=== PATIENT | female | born 1965 | race Caucasian/White ===

== ENCOUNTER 2016-05-30 07:26 | Inpatient (IN) | payer OTHER ==
[~2016-05-30] VITALS: Ht 165.1 cm; Wt 102.5 kg
[~2016-05-30 07:26] MED LIST: ALBU8.5H2 INHALATION; ALPR1TAB2 PO; ASCO500C6 PO; ASPI325T32 PO; BUSP30TA2 PO; CALC-140 PO; CHOL200047 PO; CYA1000I IM; CYCL10TA9 PO; DOCU-41 PO; FLUT9.9S NS; HYDR2TAB28 PO; IBUP1TAB56 PO; IBUP200C11 PO; LAC10 PO; LAMO150T PO; LEVO75TA4 PO; LORA0.5T PO; LORA10CA PO; MODA200T13 PO; MODA200T41 PO; MULT1CAP33 PO; PRE625 PO; PROP10DR10 OP; RANI150T11 PO; SIME80TA53 PO; TRAM50TA2 PO; ZLP10T PO; [UNRECOGNIZED DRUG - CODE] PO; prednisone PO
[2016-05-30] MEDS ORDERED: HYDROmorphone 1 mg/mL Inj IVPUSH SCH (07:50)
[2016-05-30] MEDS ORDERED: Promethazine Inj 12.5 MG in Dextrose 5%-Pha MIX 50 ML IV SCH (07:55)
[2016-05-30] MEDS ORDERED: diphenhydrAMINE 25 mg Capsule PO SCH (08:00)
[2016-05-30] MEDS ORDERED: Hydrocortisone 50 mg/mL 2 mL Inj IV SCH (08:00)
[2016-05-30 08:49] VITALS: BP 129/79; PULSE 80; O2SAT 98
[2016-05-30] MEDS ORDERED: Albuterol 2.5 mg/3 mL Inhalation Solution NEB PRN (09:15)
[2016-05-30] MEDS ORDERED: Mupirocin 2% 22 Gm Ointment TOPICAL PRN (09:15)
[2016-05-30] MEDS ORDERED: Fluticasone 0.05% 15 Spray/2 Gm 16 Gm Nasal Spray NASAL PRN (09:20)
[2016-05-30] MEDS ORDERED: LORazepam 0.5 mg Tablet PO PRN (09:20)
[2016-05-30] MEDS ORDERED: Artificial Tears 15 mL Ophthalmic Solution AFFECT_EYE PRN (09:25)
--- NOTE | 2016-05-30 09:27 | NUR ---
Social Work Note - Screening: D/A: The Pt is a 51 y/o female that was admitted for hypogammaglobulinemia. Her PCP is MD Missael Mcnamara and her insurance is with [facility]. EMR reviewed, BOBBY met with the Pt and her SO to explain role and discuss discharge planning. BOBBY telephone written on white board. The Pt's DPOA is her SO Cristina Dacosta, paperwork requested. The Pt lives independently with her SO in [place]. Oncology involved, MD Cordova following. See note. The Pt denies any needs at this time, SW to follow if needs arise. P: The Pt is not medically stable for discharge at this time, likely to discharge when medically ready with SO providing POV transportation. The Pt denies any needs at this time, SW to follow if needs arise. PHIL Cruz Slab Stripper Addendum: 05/31/16 at 1651 by MCECA MORAES SS BOBBY has reviewed note. PHIL Bradley
--- NOTE | 2016-05-30 10:21 | NUR ---
Awaiting authorization from insurance Called Dr. Khan's office and notified r/t awaiting authorization from insurance. Nurse works manager and charge nurse aware. patient aware. Denies pain or any discomfort at this time. Stable vital signs.
[2016-05-30 11:36] VITALS: BP 144/84; PULSE 83; RESP 15; O2SAT 98
[2016-05-30] MEDS: diphenhydrAMINE 25 mg Capsule PO SCH ×3 (12:08→20:30)
[2016-05-30] MEDS ORDERED: Promethazine Inj 12.5 MG in 0.9% Sodium Chloride 50 ML IV SCH (12:30)
[2016-05-30] MEDS: Promethazine Inj 12.5 MG in Dextrose 5%-Pha MIX 50 ML IV SCH ×3 (12:30→20:35)
--- NOTE | 2016-05-30 12:59 | NUR ---
Paged admit MD Per Dr Cordova request. [phone] David Martinez returned call and stated red team with be admitting.
[2016-05-30] MEDS: HYDROmorphone 1 mg/mL Inj IVPUSH PRN ×5 (13:00→22:34)
[2016-05-30] MEDS ORDERED: DIPH25CA6 PO (13:46)
[2016-05-30] MEDS: PRIVIGEN IV SCH ×6 (14:06→19:33)
[2016-05-30 15:57] VITALS: BP 128/81; PULSE 83; RESP 16; O2SAT 99
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
--- NOTE | 2016-05-30 16:40 | NUR ---
Telemetry per Tele Afib [address] and has been Afib. Dr. Shekhar brennan. Addendum: 05/30/16 at 1641 by DELMER BARAJAS RN wrong patient
--- NOTE | 2016-05-30 18:45 | NUR ---
Mentation patient alert and oriented X3. Currently on IVIG as ordered after pre meds given. No adverse effects of IVIG noted. c/o headache and general pain 3-5/10. PRN dilaudid every 2 hours for pain as needed. Stable VS. Admit nurse at bed side this shift for med req and admission. Patient asking r/t IV ABO, and IV fluids after IVIG done. Notified DR Corrigan and aware. Dr. Corrigan at bed side and speaking to the patient. IVIG via port which was accessed yesterday per patient report. IV therapy at bed side before IVIG started for dressing on the port. ambulation to bathroom with out SOB or trouble breathing. Denies chest pain or chest discomfort. patient refused shower this shift. report given to next shift.
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
[2016-05-30] MEDS: 0.9% Sodium Chloride 1,000 ML IV SCH (20:35)
[2016-05-30] MEDS: Mupirocin 2% 22 Gm Ointment TOPICAL SCH (20:37)
[2016-05-30] MEDS ORDERED: Polyethylene Glycol (PEG) 17 Gm Powder PO PRN (20:40)
[2016-05-30] MEDS ORDERED: Ondansetron 2 mg/mL 2 mL Inj IVPUSH PRN (20:40)
[2016-05-30] MEDS ORDERED: Alum-Mag Hydrox-Simeth 30 mL Suspension PO PRN (20:40)
[2016-05-30] MEDS: BusPIRone 15 mg Dividose Tablet PO SCH (20:45)
[2016-05-30] MEDS: lamoTRIgine 100 mg Tablet PO SCH (20:45)
[2016-05-30 21:08] VITALS: BP 122/73; PULSE 78; RESP 18; O2SAT 95
[2016-05-30] MEDS: diphenhydrAMINE 25 mg Capsule PO PRN (22:33)
[2016-05-31] MEDS: Promethazine Inj 12.5 MG in Dextrose 5%-Pha MIX 50 ML IV SCH ×2 (00:32→04:37)
[2016-05-31] MEDS: HYDROmorphone 1 mg/mL Inj IVPUSH PRN ×11 (00:33→22:21)
[2016-05-31 00:45] VITALS: BP 147/85; PULSE 70; RESP 18; O2SAT 97
[2016-05-31] MEDS: diphenhydrAMINE 25 mg Capsule PO SCH (02:29)
[2016-05-31 04:52] VITALS: BP 117/76; PULSE 84; RESP 16; O2SAT 96
--- NOTE | 2016-05-31 05:18 | NUR ---
Pain/Nausea Pain has progressively gotten worse as the night has gone on. Pain medication not having as much of impact as before but pt states she still gets enough relief. Pt nausea has been kept at bay. Only during the 429 administration of Phenergan did the pt mention some slight nausea before administration.
[2016-05-31] MEDS: diphenhydrAMINE 25 mg Capsule PO PRN ×2 (06:37→22:20)
[2016-05-31 08:22] VITALS: BP 146/88; PULSE 78; RESP 16; O2SAT 96
[2016-05-31] MEDS ORDERED: HYDROmorphone 2 mg/mL Inj IVPUSH PRN (08:27)
[2016-05-31] MEDS: Mupirocin 2% 22 Gm Ointment TOPICAL SCH ×2 (08:30→20:28)
[2016-05-31] MEDS: Promethazine Inj 12.5 MG in Dextrose 5%-Pha MIX 50 ML IV PRN ×4 (08:33→20:22)
[2016-05-31] MEDS: Dexamethasone Inj 10 MG in 0.9% Sodium Chloride-Pha MIX 50 ML IV SCH (11:50)
[2016-05-31 12:19] LABS: BASOPHILS % (AUTO) 0.3 % (0-3); EOSINOPHILS % (AUTO) 0.5 % (0-5); MONOCYTES % (AUTO) 9.8 % (4-12); Mean Corpuscular Hemoglobin 29.6 pg (27.0-35.0); NEUTROPHILS % (AUTO) 70.3 % (40-74); Platelet Count 461 bil/L (150-400)
[2016-05-31 14:06] VITALS: BP 144/89; PULSE 69; RESP 16; O2SAT 97
--- NOTE | 2016-05-31 15:08 | PCM.PNMED ---
Subjective Date of Service May 31, 2016 Subjective Patient was extremely uncomfortable during the time of my visit on exam. I am hospital bag complaining of severe "meningeal" headache which radiated from temples to top of skull and around to front and back. She endorsed persistent nausea which has not been controlled with current medications. She is sweaty and also endorsing general body aches. She is frustrated she has not received a steroid she thought she was going to be getting. She also states that the pain medication provided so far has been insufficient joint pain. Exam Vital Signs Vital Sign - Last Date Time Temp Pulse Resp B/P Pulse Ox O2 Delivery O2 Flow Rate FiO2 05/31/16 08:22 36.5 78 16 146/88 96 Room Air Intake and Output 05/30/16 05/30/16 05/31/16 Cumulative From/Thru 15:00 23:00 07:00 05/30/16 11:47 - 05/30/16 18:34 Intake Total 1247 ml 1247 ml Balance 1247 ml 1247 ml Intake Oral 900 ml 900 ml IV Total 347 ml 347 ml # Voids 4 4 General: Alert, Oriented X3, Severe Distress, Other (patient is diaphoretic with towel wrapped around had making poor eye contact periodically dry heaving while lying in hospital bed. Speech is loud, and harsh patient is obviously agitated. ) Extremities: No cyanosis/clubbing/edma bilat Skin: Other (Pt is diffusely diaphoretic. ) Neurological: Grossly Neurologically Intact, Other (no overt tremor noted. Full range of motion at least is demonstrated repositioning in bed by patient. ) Additional Information: More extensive exam could not be conducted due to patient noncompliance, request to leave the room and change medications are better pain control. IVs and Medications Medications Reviewed: Medications were reviewed in detail Lab and Diagnostics Result Diagram: 05/31/16 1150 05/31/16 1150 Assessment & Plan 51 YO F with pmhx of hypogammaglobulinemia, admitted for IVIG therapy due to history of very severe reaction requiring intensive medical therapy: 1. Hypogammaglobulemia - Pt scheduled for multiple therapies, now day 2 of hospitalization. - Post treatment steroids to be provided given effects for attenuating response , prescribed by Dr. Cordova. - Pain medication as per Hem/Onc based on previous adelia. Will start continues pulse ox given high dose of opiate. We have increased her dosage to 2-4 mg every 2 hours, at patient and nurses discretion for optimal pain control. - IVFs continued at 50cc/hr - Will continue to provide treatment in accordance with Hem/Onco recommendations 2. Skin erosion/ulceration - Pt notes infection to be chronic, bacterial in nature - Continue topical antibiotic/bactroban 3. Hypothyroidism: - Continue Levothyroxine at out patient dosage. 4. Anxiety: - see above, continue home medications. 5. Transaminitis, with elevated alkaline phosphatase. - Etiology is not clear to me however it may very well be her body's own response to IVIG therapy which clinically is quite severe. - I am not sure of previous baseline as I do not have access patient's outpatient records at this time, but to be reviewed by patient's oncologist Dr. Cordova. - We will continue to trend daily lab studies, consider further intervention should this be upper trending. Patient will require 3-4 more days to complete IV therapy and allow time for medical stabilization given severe response to current treatment. Pain Evaluation: Pain not Controlled GI Prophylaxis: Not indicated VTE Prophylaxis: Other (Pt will be ambulated. ) Resuscitation Status: CPR: Attempt Resuscitation Time spent 25 minutes Sushil Hobbs DO May 31, 2016 15:08
[2016-05-31 17:50] VITALS: BP 146/87; PULSE 81; RESP 16; O2SAT 96
--- NOTE | 2016-05-31 17:53 | NUR ---
Pain/nausea- Patient complaining of 10/10 head pain associated with nausea this am. No emesis. Pain and nausea gradually improved throughout the day with Dilaudid 2 mg IV, Benadryl IV and Phenergan IV given as per ordered and per her request. Patient verbalized that she thought meds would automatically be administered. I explained they were ordered prn and that she would need to let nurse know when she needed them. Both patient and significant other were upset by this. We made a plan that nursing staff would check with her every 30 minutes to every hour and document on white board when meds were last given. She also set her phone alarm to let her know when she could have the Dilaudid around the clock, even when asleep. They both seem satisfied with this plan. Patient on continuous oximetry.
[2016-05-31] MEDS: 0.9% Sodium Chloride 1,000 ML IV SCH (20:21)
[2016-05-31] MEDS: lamoTRIgine 100 mg Tablet PO SCH (20:30)
[2016-05-31] MEDS: BusPIRone 15 mg Dividose Tablet PO SCH (20:31)
--- NOTE | 2016-05-31 21:48 | NUR ---
PULSE OXIMETER Pt refused continuous pulse oximeter as "since it doesn't connect to a monitor up front, it only wakes me up. What's the point of it?" Explained need to monitor oxygen, pt stated "I know that, I don't know why you guys are so worried all the time." Placed 2 L O2 on pt, pt complies with this. Respirations at 12 per minute, will count often as pt receives dilaudid q2h. Hourly rounding.
[2016-06-01] MEDS: HYDROmorphone 1 mg/mL Inj IVPUSH PRN ×13 (00:26→23:32)
[2016-06-01 00:30] VITALS: RESP 14
[2016-06-01] MEDS: Promethazine Inj 12.5 MG in Dextrose 5%-Pha MIX 50 ML IV PRN ×6 (01:00→21:39)
[2016-06-01] MEDS: diphenhydrAMINE 25 mg Capsule PO PRN ×2 (02:24→06:28)
--- NOTE | 2016-06-01 02:46 | NUR ---
ZOFRAN Pt discussed with RN at start of shift about plan of care: dilaudid q2h, nausea medications q2h rotating between phenergan and benadryl. Pt stated she used to take zofran, but previously she had been noted to have QT prolongation. RN told pt zofran is available if necessary, and pt stated "I can't have that at all. That's what they told me so I don't take it anymore." Added zofran to adverse reaction medication list. Will pass on to day shift to not given any zofran. Hourly rounding in place.
[2016-06-01 05:13] VITALS: BP 136/86; PULSE 79; RESP 16; O2SAT 96
--- NOTE | 2016-06-01 07:35 | PROG NOTE ---
[address] [address] PROGRESS NOTE PATIENT: DHARA JONES : 1965 MR#: [id number] ADMIT: 05/30/2016 JOB ID: [id number] DATE: 05/31/2016 SUBJECTIVE: The patient is a 51-year-old woman with hypogammaglobulinemia admitted for IVIG therapy. She has had a significant headache as well as nausea and vomiting associated with her infusion, which is typical for her treatments. However, overnight in general she felt that she was well treated and is in good spirits this morning. No fevers. OBJECTIVE: Vitals: T 36.5, P 84, R 16, BP 117/76. O2 saturation 96% on room air. HEENT: Conjunctivae pink. Mucous membranes slightly dry. No oral lesions. Nodes: No adenopathy in the neck or axilla. Chest distant, but clear. Cardiac exam regular rate and rhythm. Abdomen is soft, mild tenderness. No splenomegaly or masses. Extremities no edema, 2+ distal pulses. LABORATORIES: WBC 3.7 with 70% neutrophils, hemoglobin 11.5, hematocrit 36.1%, platelets 461,000. Sodium 138, potassium 3.6, BUN 10, creatinine 0.51. Glucose 154. AST 754. ALT 398. Alkaline phosphatase 248. IgG 486 (normal 700-1600). ASSESSMENT AND PLAN: 1. Hypogammaglobulinemia: The patient received her IVIG infusion yesterday. Continue to titrate her Dilaudid, Phenergan, lorazepam, and Benadryl to comfort. It usually takes 3-5 days for side effects of her IVIG infusion to priti. 2. Transaminitis: Unclear etiology, but likely associated with her treatment. Consider abdominal ultrasound.
[2016-06-01] MEDS: Mupirocin 2% 22 Gm Ointment TOPICAL SCH ×2 (08:31→20:30)
[2016-06-01 08:32] LABS: BASOPHILS % (AUTO) 0.2 % (0-3); EOSINOPHILS % (AUTO) 0.7 % (0-5); MONOCYTES % (AUTO) 11.6 % (4-12); Mean Corpuscular Hemoglobin 29.9 pg (27.0-35.0); Platelet Count 451 bil/L (150-400)
[2016-06-01] MEDS: Dexamethasone Inj 10 MG in 0.9% Sodium Chloride-Pha MIX 50 ML IV SCH (08:35)
[2016-06-01] MEDS: 0.9% Sodium Chloride 1,000 ML IV SCH (10:00)
[2016-06-01 10:30] VITALS: PULSE 87; O2SAT 94
[2016-06-01 11:45] VITALS: BP 157/89; PULSE 85; RESP 18; O2SAT 96
--- NOTE | 2016-06-01 11:47 | PCM.PNMED ---
Subjective Date of Service Jun 01, 2016 Subjective Patient is feeling significantly improved today relative to earlier stay at the initiation of IVIG therapy. She notes headache is still severe and generalized body pains present as well, nausea has improved significantly allowing her to take in some food and fluids by mouth. Overall she notes still feeling very weak and unwell, as would be typical providers response to IVIG therapy, but certainly not as poorly as yesterday. Does not adjust pain shortness of breath. She is expressing some constipation and would like to take her home dose of lactulose. Additionally requesting ibuprofen for headache. Otherwise no acute complaints. Exam Vital Signs Vital Sign - Last Date Time Temp Pulse Resp B/P Pulse Ox O2 Delivery O2 Flow Rate FiO2 06/01/16 10:30 87 94 Nasal Cannula 2.00 06/01/16 05:13 36.8 16 136/86 Intake and Output 05/31/16 05/31/16 06/01/16 Cumulative From/Thru 15:00 23:00 07:00 05/30/16 11:47 - 06/01/16 06:35 Intake Total 1578 ml 898 ml 1292 ml 5015 ml Balance 1578 ml 898 ml 1292 ml 5015 ml Intake Oral 825 ml 200 ml 600 ml 2525 ml IV Total 753 ml 698 ml 692 ml 2490 ml # Voids 6 1 3 14 # Bowel Movements 0 0 General: Alert, Oriented X3, Cooperative Eyes: PERRLA, Other (some photophobia reported) Mouth: Mucous Membr Moist/Buchtel Chest & Lungs: Clear to auscultation & percussion Cardiovascular: Regular Rate/Rhythm Extremities: No cyanosis/clubbing/edma bilat Skin: Other (cirrhosis mouth around neck and blisters on fingers as previously. ) Neurological: Grossly Neurologically Intact IVs and Medications Medications Reviewed: Medications were reviewed in detail Lab and Diagnostics Result Diagram: 06/01/1682206/01/16822 Assessment & Plan 51 YO F with pmhx of hypogammaglobulinemia, admitted for IVIG therapy due to history of very severe reaction requiring intensive medical therapy: 1. Hypogammaglobulemia - Pt scheduled for multiple therapies, now day 3 of hospitalization. - Post treatment steroids to be provided given effects for attenuating response , prescribed by Dr. Cordova. - Pain medication as per Hem/Onc based on previous adelia. Will start continues pulse ox given high dose of opiate. We had increased her dosage to 2-4 mg every 2 hours, at patient and nurses discretion for optimal pain control. - IVFs continued at 50cc/hr - Will continue to provide treatment in accordance with Hem/Onco recommendations - Ibuprofen added for pain 2. Skin erosion/ulceration - Pt notes infection to be chronic, bacterial in nature - Continue topical antibiotic/bactroban 3. Hypothyroidism: - Continue Levothyroxine at out patient dosage. 4. Anxiety: - see above, continue home medications. 5. Transaminitis, with elevated alkaline phosphatase. - Etiology is not clear to me however it may very well be her body's own response to IVIG therapy which clinically is quite severe. - I am not sure of previous baseline as I do not have access patient's outpatient records at this time, but to be reviewed by patient's oncologist Dr. Cordova. - We will continue to trend daily lab studies, reassured that LFTs now downward trending. - Consider further evaluation should this be again upper trending. Patient will require 3-4 more days to complete IV therapy and allow time for medical stabilization given severe response to current treatment. Pain Evaluation: Adequate Pain Control GI Prophylaxis: Not indicated VTE Prophylaxis: Other (Pt will be ambulated. ) Resuscitation Status: CPR: Attempt Resuscitation Time spent 30 minutes Sushil Hobbs DO Jun 01, 2016 11:47
[2016-06-01] MEDS: 0.9% Sodium Chloride 250 ML IV SCH (13:39)
[2016-06-01] MEDS ORDERED: Sodium Chloride LOK Flush 10 mL Syringe IVFLUSH PRN ×2 (13:40)
[2016-06-01] MEDS ORDERED: HepLOK Flush 100 unit/mL 5 mL Inj IVFLUSH PRN (13:40)
--- NOTE | 2016-06-01 14:36 | PROG NOTE ---
[address] [address] PROGRESS NOTE PATIENT: DHARA JONES : 1965 MR#: [id number] ADMIT: 05/30/2016 JOB ID: [id number] DATE: 06/01/2016 SUBJECTIVE: The patient is a 51-year-old woman with hypogammaglobulinemia, admitted for IVIG therapy. She is feeling a bit better this morning, but had a "a terrible day." She did not feel that she received adequate amounts of Dilaudid or antiemetics. Still, she is doing better this morning. No fevers. No shortness of breath. OBJECTIVE: Vitals: T 37.2, P 85, R 18, BP 157/89. O2 saturation 96% on 2 L oxygen by nasal cannula. HEENT: Conjunctivae slightly pale. Mucous membranes moist. No oral lesions. Nodes: No adenopathy in the neck or axillae. Chest: Clear. Cardiac exam: Regular rate and rhythm with normal S1, S2. Abdomen: Soft. Minimal tenderness. No splenomegaly or masses. Extremities: No edema, 2+ distal pulses. No calf tenderness. LABORATORIES: WBC 5.8, hemoglobin 10.9, hematocrit 34.2%, platelets 451,000. BUN 7, creatinine 0.53, glucose 106. AST 213, ALT 254, alkaline phosphatase 211. ASSESSMENT AND PLAN: 1. Hypogammaglobulinemia: The patient received her IVIG infusion two days ago. Continue to titrate Dilaudid, Phenergan, lorazepam and Benadryl to comfort. It takes 3-5 days for side effects of IVIG infusion to resolve in this patient. Check daily CBC, differential, platelets and CMP. 2. Transaminitis: Liver function tests remain elevated, but are improving. For now, continue to monitor without further evaluation. She typically has these findings with her treatments. ERNESTO
[2016-06-01] MEDS: Lactulose 20 Gm/30 mL 30 mL Syrup PO PRN (14:43)
[2016-06-01 16:25] VITALS: BP 151/95; PULSE 66; RESP 16; O2SAT 97
--- NOTE | 2016-06-01 17:11 | NUR ---
Pain/nausea Pain has decreased from 8/10 at the beginning to the shift to 6/10. Pt has been given 2m of Dilaudid every 2 hours consistently. Has also been receiving scheduled Ultram and was given a dose of ibuprofen. Nausea controlled with Phenergan IV every 4 hours.
[2016-06-01 19:40] VITALS: BP_SYST 151; BP_DIAS 0; BP_DIAS 80; PULSE 67; RESP 18; RESP 8; O2SAT 97
[2016-06-01] MEDS: BusPIRone 15 mg Dividose Tablet PO SCH (21:40)
[2016-06-01] MEDS: lamoTRIgine 100 mg Tablet PO SCH (21:40)
[2016-06-02] MEDS: HYDROmorphone 1 mg/mL Inj IVPUSH PRN ×11 (01:35→22:33)
[2016-06-02] MEDS: Promethazine Inj 12.5 MG in Dextrose 5%-Pha MIX 50 ML IV PRN ×6 (01:35→22:00)
--- NOTE | 2016-06-02 02:05 | NUR ---
PAIN/NAUSEA Pt stated she is starting to feel better than previous days. Pt is still receiving 2mg dilaudid q2h, pain ranging from 6-8/10. Pt still receiving phenergan q4h, nausea is controlled effectively with this. Pt has not requested benadryl this shift. Hourly rounding in place with frequent respirations check.
[2016-06-02] MEDS: 0.9% Sodium Chloride 1,000 ML IV SCH (03:29)
[2016-06-02 05:39] VITALS: BP 124/79; PULSE 78; RESP 14; O2SAT 98
[2016-06-02 07:12] LABS: BASOPHILS % (AUTO) 0.3 % (0-3); EOSINOPHILS % (AUTO) 1.7 % (0-5); MONOCYTES % (AUTO) 9.9 % (4-12); Mean Corpuscular Hemoglobin 30.2 pg (27.0-35.0); Mean Corpuscular Volume 95.2 fL (81-100); NEUTROPHILS % (AUTO) 46.8 % (40-74); Platelet Count 437 bil/L (150-400)
[2016-06-02] MEDS: Dexamethasone Inj 10 MG in 0.9% Sodium Chloride-Pha MIX 50 ML IV SCH (08:12)
[2016-06-02] MEDS: Mupirocin 2% 22 Gm Ointment TOPICAL SCH ×2 (08:12→20:30)
[2016-06-02] MEDS: Lactulose 20 Gm/30 mL 30 mL Syrup PO PRN (08:15)
[2016-06-02] MEDS: diphenhydrAMINE 25 mg Capsule PO PRN ×3 (08:15→20:50)
--- NOTE | 2016-06-02 08:59 | PROG NOTE ---
[address] [address] PROGRESS NOTE PATIENT: DHARA JONES : 1965 MR#: [id number] ADMIT: 05/30/2016 JOB ID: [id number] DATE: 06/02/2016 SUBJECTIVE: The patient is a 51-year-old woman with hypogammaglobulinemia. Admitted May 29, 2016, for IVIG therapy. She has had a bit of relapse with her headaches early this morning, and will not be able to be discharged today. However, overall symptoms associated with her IVIG infusion, which include headache, and severe nausea and vomiting, are improving. No shortness of breath. OBJECTIVE: Vitals: T 36.4, P 78, R 14, BP 124/79. HEENT: Conjunctivae slightly pale. Mucous membranes dry. No oral lesions. Nodes: No adenopathy in the neck or axillae. Chest: Distant, but clear. Cardiac exam: Regular rate and rhythm with normal S1, S2. Abdomen: Soft. Minimal tenderness. No splenomegaly or masses. Extremities: No edema, 2+ distal pulses. No calf tenderness. LABORATORIES: WBC 6.5, hemoglobin 10.7, hematocrit 33.7%, platelets 437,000. Sodium 140, potassium 3.7, BUN 6, creatinine 0.52, glucose 100. AST 98, ALT 169, alkaline phosphatase 175. ASSESSMENT AND PLAN: 1. Hypogammaglobulinemia: The patient received her IVIG infusion three days ago. Continue to administer Dilaudid, Phenergan, lorazepam and Benadryl as needed for symptom relief. Anticipate that she will improve over time and likely be able to be discharged home tomorrow. [facility] with CBC, differential, platelets and CMP. If discharged, she will need a prescription for oral Dilaudid over the weekend until I can see her next Sunday. 2. Transaminitis: Liver function tests are elevated, but improving. Continue to monitor without further investigation. This is a common phenomenon with her IVIG treatments.
[2016-06-02 09:41] VITALS: BP 122/78; PULSE 76; RESP 16; O2SAT 100
--- NOTE | 2016-06-02 10:55 | PCM.PNMED ---
Subjective Date of Service Jun 02, 2016 Exam Vital Signs Vital Sign - Last Date Time Temp Pulse Resp B/P Pulse Ox O2 Delivery O2 Flow Rate FiO2 06/02/16 05:39 36.4 78 14 124/79 98 Room Air 06/01/16 16:25 2.00 Intake and Output 06/01/16 06/01/16 06/02/16 Cumulative From/Thru 14:59 22:59 06:59 05/30/16 11:47 - 06/02/16 05:14 Intake Total 1838 ml 1842 ml 8695 ml Balance 1838 ml 1842 ml 8695 ml Intake Oral 1320 ml 1680 ml 5525 ml IV Total 518 ml 162 ml 3170 ml # Voids 5 3 22 # Bowel Movements 0 Lab and Diagnostics O/N doing well then woke up with worsening GAYTAN and nausea, better w/ IV dilaudid/ phenergan, ongoing constipation on 2L O2 due to high dilaudid need NAD A and o x3 CTAB RRR soft + BS HENRIQUEZ vesicles hands healing new excoriation right periauricle/left eye brow. left perioral crease present Result Diagram: 06/01/1682206/01/16822 Assessment & Plan 51 YO F with pmhx of hypogammaglobulinemia, admitted for recurrent IVIG therapy due to history of very severe reaction requiring intensive medical therapy, ongoing nausea/pain, anticipate discharge tomorrow: 1. Hypogammaglobulemia ivIG- Post treatment steroids to be provided given effects for attenuating response, prescribed by Dr. oCrdova. - Pain medication as per Hem/Onc based on previous adelia. Will start continues pulse ox given high dose of opiate. We had increased her dosage to 2-4 mg every 2 hours, at patient and nurses discretion for optimal pain control. - IVFs continued at 50cc/hr - Ibuprofen added for pain 2. Skin erosion/ulceration - Pt notes infection to be chronic, bacterial in nature - Continue topical antibiotic/bactroban 3. Hypothyroidism: - Continue Levothyroxine at out patient dosage. 4. Anxiety: - see above, continue home medications. 5. Transaminitis, with elevated alkaline phosphatase, resolving. - Etiology is not clear to me however it may very well be her body's own response to IVIG therapy which clinically is quite severe. - I am not sure of previous baseline as I do not have access patient's outpatient records at this time, but to be reviewed by patient's oncologist Dr. Cordova. - We will continue to trend daily lab studies, reassured that LFTs now downward trending. - Consider further evaluation should this be again upper trending. constipation add docusate w/ lactulose dispo anticiipate home tomorrow GI Prophylaxis: Not indicated VTE Prophylaxis: Other (Pt will be ambulated. ) Resuscitation Status: CPR: Attempt Resuscitation Charlie Lemon MD Jun 02, 2016 06:44
[2016-06-02] MEDS: 0.9% Sodium Chloride 250 ML IV SCH (13:39)
--- NOTE | 2016-06-02 13:50 | NUR ---
Social Work note - Continued d/c planning [employer] completed EMR review: 51 YO F admitted for treatment of hypogammaglobulinemia, admitted for recurrent IVIG therapy due to history of very severe reaction requiring intensive medical therapy, ongoing nausea/pain. Pt continues to require IV pain management - anticipate discharge tomorrow. Plan: Pt will d/c home with family in [place] - no needs identified. CHRISTY Yoder
--- NOTE | 2016-06-02 14:54 | NUR ---
Pain/nausea Head pain 5-9/10. Managed with Dilaudid 2-4mg every 2 hours. Pt is also receiving scheduled Ultram. Nausea controlled with Phenergan and Diphenhydramine. Will continue to monitor.
[2016-06-02 16:16] VITALS: BP 145/84; PULSE 76; RESP 14; O2SAT 98
[2016-06-02 20:30] VITALS: BP 155/92; PULSE 71; RESP 16; O2SAT 98
[2016-06-02] MEDS: BusPIRone 15 mg Dividose Tablet PO SCH (20:35)
[2016-06-02] MEDS: lamoTRIgine 100 mg Tablet PO SCH (20:36)
[2016-06-03] MEDS: diphenhydrAMINE 25 mg Capsule PO PRN ×3 (00:33→08:54)
[2016-06-03] MEDS: HYDROmorphone 1 mg/mL Inj IVPUSH PRN ×6 (00:33→11:30)
[2016-06-03 02:00] VITALS: BP 146/90; PULSE 67; RESP 16; O2SAT 97
[2016-06-03] MEDS: Promethazine Inj 12.5 MG in Dextrose 5%-Pha MIX 50 ML IV PRN ×3 (02:09→11:35)
[2016-06-03 06:17] VITALS: BP 125/72; PULSE 78; RESP 16; O2SAT 97
[2016-06-03] MEDS: Dexamethasone Inj 10 MG in 0.9% Sodium Chloride-Pha MIX 50 ML IV SCH (08:55)
--- NOTE | 2016-06-03 08:55 | PCM.DC.MED ---
Discharge Summary Date of Service Jun 03, 2016 Dates of Hospitalization Date of Hospital Admission May 30, 2016 at 07:26 Date of Discharge: Jun 03, 2016 Providers: Admitting Physician: Daniel Cordova MD Primary Care Physician: Missael Mcnamara MD Attending Physician: Daniel Cordova MD Diagnosis at Time of Discharge Diagnosis at Time of Discharge headache/cellulitis/vesicular rash, resolving s/p IVIG recurrent therapy hypogammaglobulinemia Consultations oncology Brief History This is a 51 YO F with pmhx significant for hypogammaglobulinemia with requires periodic IVIG therapy. The is further complicated by patient having severe and violent reaction to treatments which has necessitated hospital admission for aggressive hydration and close observation. She is treated ~every 6 months, generally at [facility], but this occasion will be at [facility]. Pt is anxious about new setting and ensuring the usual care is provided which she has found makes the IVIG therapy tolerable, and even possible. She is feeling 'OK' at time of my exam, having started first infusion a few hours prior, so far noting no significant effects, but states they generally do not start occurring until later. She notes multiple lesions of skin , starting as blisters which pop and ulcerate. This has been more common over last few months. They tend to respond to topical antibiotic therapy. She denies chest pains or shortness of breath currently. No pain at this time. Normal bowel /bladder function prior to admission. Hospital Course 51 YO F with pmhx of hypogammaglobulinemia, admitted for recurrent IVIG therapy due to history of very severe reaction requiring intensive medical therapy, discharged today w/ improvement of nausea/headache/hand vesicles/facial erosions after HD5, 1. Hypogammaglobulemia ivIG- Post treatment steroids to be provided given effects for attenuating response, prescribed by Dr. Cordova. - Pain medication as per Hem/Onc-already family picked up at pharmacy. O2NC during dilaudid administration here. We had increased her dosage to 2-4 mg every 2 hours, at patient and nurses discretion for optimal pain control. - IVFs continued at 50cc/hr dcd after tolerating diet well - Ibuprofen added for pain 2. Skin erosion/ulceration - Pt notes infection to be chronic, bacterial in nature - Continue topical antibiotic/bactroban 3. Hypothyroidism: - Continue Levothyroxine at out patient dosage. 4. Anxiety: - see above, continue home medications. 5. Transaminitis, with elevated alkaline phosphatase, resolving. - Etiology is not clear however it may very well be her body's own response to IVIG therapy which clinically is quite severe. - We will continue to trend daily lab studies, reassured that LFTs now downward trending. - Consider further evaluation should this be again upper trending. constipation, resolved added docusate w/ lactulose Exam Vital Signs (Last) Date Time Temp Pulse Resp B/P Pulse Ox O2 Delivery O2 Flow Rate FiO2 06/03/16 06:17 37.1 78 16 125/72 97 Nasal Cannula 2.00 Exam on RA comfortable NAD A and O x 3 speaking in full sentences RRR CTAB soft nt nd + BS HENRIQUEZ no edema facial erosions resolving hand vesicles resolved Test 06/02/16 06:20 White Blood Count 6.5th/mm3 (3.8-10.1) Red Blood Count 3.54mil/mm3 (3.90-5.20) Hemoglobin 10.7g/dL (12.0-15.6) Hematocrit 33.7% (35.0-46.0) Mean Corpuscular Volume 95.2fL (81-100) Mean Corpuscular Hemoglobin 30.2pg (27.0-35.0) Mean Corpuscular Hemoglobin Concent 31.8% (32.0-37.0) Red Cell Distribution Width 14.0% (12.3-15.4) Platelet Count 437bil/L (150-400) Neutrophils (%) (Auto) 46.8% (40-74) Lymphocytes (%) (Auto) 41.1% (14-46) Monocytes (%) (Auto) 9.9% (4-12) Eosinophils (%) (Auto) 1.7% (0-5) Basophils (%) (Auto) 0.3% (0-3) Sodium Level 140mEq/L (134-144) Potassium Level 3.7mEq/L (3.5-5.2) Chloride Level 102mEq/L (97-108) Carbon Dioxide Level 25mmol/L (18-29) Blood Urea Nitrogen 6mg/dL (6-24) Creatinine 0.52mg/dL (0.57-1.00) Estimat Glomerular Filtration Rate 179mL/min (>59) Glucose Level 100mg/dL (60-99) Calcium Level 8.8mg/dL (8.5-10.1) Total Bilirubin 0.2mg/dL (0.0-1.2) Aspartate Amino Transf (AST/SGOT) 98U/L (0-50) Alanine Aminotransferase (ALT/SGPT) 169U/L (0-32) Alkaline Phosphatase 175U/L (25-150) Total Protein 6.3g/dL (6.4-8.4) Albumin 3.7g/dL (3.4-5.0) Discharge Medications Discharge Medications ([prednisone]) MG PO DIRECTED (Reported) 10mg po x3days 5mg po x3days 2mg po x3days then stop Albuterol HFA (Proair HFA) 8.5 Gm Hfa.aer.ad 2 PUFFS INHALATION Q4H (Reported) Ascorbic Acid (Vitamin C) 500 Mg Capsule.er 500 MG PO DAILY (Reported) Buspirone (Buspirone) 30 Mg Tablet 30 MG PO HS (Reported) Calcium Carbonate/Vitamin D3 (Calcium + Vitamin D Tablet) 1 Each Tablet 2 EACH PO DAILY (Reported) Cholecalciferol (Vitamin D3) (Vitamin D3) 2,000 Unit Capsule 2,000 UNIT PO twice a week (Reported) Cyanocobalamin (Cyanocobalamin Injection) 1,000 Mcg/1 Ml Vial 1,000 MCG IM Monthly (Reported) Estrogens Conjugated (Premarin) 0.625 Mg Tablet 0.625 MG PO DAILY (Reported) Lamotrigine (Lamictal) 150 Mg Tablet 150 MG PO DAILY (Reported) Levothyroxine (Levothyroxine) 75 Mcg Tablet 75 MCG PO DAILY (Reported) Loratadine (Claritin) 10 Mg Capsule 10 MG PO DAILY (Reported) Modafinil (Modafinil) 200 Mg Tablet 200 MG PO BID (Reported) Modafinil (Provigil) 200 Mg Tablet 200 MG PO BID (Reported) Multivitamin (Multivitamins) 1 Each Capsule 1 EACH PO DAILY (Reported) Ranitidine (Zantac) 150 Mg Tablet 150 MG PO DAILY (Reported) Tramadol (Tramadol) 50 Mg Tablet 100 MG PO Q6H (Reported) Zolpidem (Ambien) 10 Mg Tablet 10 MG PO HS (Reported) As needed Alprazolam (Xanax) 1 Mg Tablet 1 MG PO Q6H PRN PRN For Anxiety (Reported) Aspirin (Aspirin) 325 Mg Tablet 325 MG PO DIRECTED PRN PRN For Pain (Reported ) Cyclobenzaprine (Cyclobenzaprine) 10 Mg Tablet 10 MG PO HS PRN PRN Spasm ( Reported) Docusate Sodium (Colace) 100 Mg Capsule 100 MG PO BID PRN PRN For Constipation ( Reported) Fluticasone Propionate (Flonase Allergy Relief) 50 Mcg/Actuation [place].susp 9.9 ML NS DAILY PRN PRN allergies (Reported) Guaifen/Phenyleph/Acetaminophn (Sudafed PE Pressure+Pain+Mucus) 200 Mg-5 Mg-325 Mg Tablet 1 EACH PO DIRECTED PRN PRN For Congestion (Reported) Hydromorphone (Hydromorphone) 2 Mg Tablet 2 MG PO q4-6h PRN PRN Pain (Reported) Ibuprofen (Advil) 200 Mg Capsule 200 MG PO DIRECTED PRN PRN For Pain ( Reported) Ibuprofen/Diphenhydramine Cit (Motrin Pm Caplet) 1 Each Tablet 1 EACH PO Q6H PRN PRN For Pain (Reported) Lactulose (Lactulose) 10 Gm/15 Ml Solution 30 GM PO DAILY PRN PRN For Constipation (Reported) Lorazepam (Lorazepam) 0.5 Mg Tablet 0.5 MG PO BID PRN PRN For Anxiety (Reported ) Propylene Glycol (Lubricant Eye Drops) 0.6 % Drops 10 ML OP DAILY PRN PRN dry eyes (Reported) Simethicone (Gas-X) 80 Mg Tablet 80 MG PO DIRECTED PRN PRN gas (Reported) diphenhydrAMINE HCl (Benadryl) 25 Mg Capsule 25 MG PO HS PRN PRN (Reported) Charlie Lemon MD Jun 03, 2016 08:08
--- NOTE | 2016-06-03 08:57 | PCM.DIMED ---
Discharge Instructions Date of Service Jun 03, 2016 Dates of Hospitalization May 30, 2016 at 07:26 Discharge Diagnosis Discharge Diagnosis headache/cellulitis/vesicular rash, resolving s/p IVIG recurrent therapy hypogammaglobulinemia Patient Instructions f/u Dr. Cordova/oncology Charlie Lemon MD Jun 03, 2016 08:57
[2016-06-03 09:00] VITALS: BP 145/85; PULSE 71; RESP 18; O2SAT 99
[2016-06-03] MEDS: Mupirocin 2% 22 Gm Ointment TOPICAL SCH (09:11)
--- NOTE | 2016-06-03 12:36 | NUR ---
Discharge Patient discharged to home with family via private vehicle. Discharge instructions discussed with patient. No prescriptions given at this time. Patient understands follow up instructions and will make an appointment. All personal belongings sent with patient.
--- NOTE | 2016-06-03 13:14 | NUR ---
Patient call back Patient called [facility] on her way home concerned about an antibiotic which she had just started in the hospital. RN contacted Dr. Lemon the Hospitalist who cared for the patient and she will call the Keflex prescription in to the patients pharmacy, [facility] in [place]. Returned the call to the patient to let her know about the prescription that would be called in for her.
[2016-06-03] MEDS ORDERED: CEPH-511 PO (13:26)
[2016-06-06] MEDS ORDERED: PRE20 PO (08:23)
[2016-06-14] MEDS ORDERED: DIF100A PO (10:48)
[2016-07-31] MEDS ORDERED: CEPH-512 PO (15:59)
== END 2016-06-03 12:37 | disposition home or self-care (01) | DRG 816 ==
LOC: MOC 07:26
PROVIDERS: ADMIT Internal Medicine Hematology & Oncology; ATTEND Family Medicine
DX: D80.1 Nonfamilial hypogammaglobulinemia (principal); E03.9 Hypothyroidism, unspecified; F41.9 Anxiety disorder, unspecified; R74.0 Nonspecific elevation of levels of transaminase and lactic acid dehydrogenase [LDH]; L98.491 Non-pressure chronic ulcer of skin of other sites limited to breakdown of skin